=== PATIENT | female | born 1995 | race Two or more races ===

== ENCOUNTER 2017-01-04 18:45 | Emergency (ER) | payer BC ==
[2017-01-04 19:05] VITALS: BP 134/73; PULSE 100; TEMP 98.5; BMI 25.8
--- NOTE | 2017-01-04 19:31 | DIRPT ---
CLINICAL DATA: Right wrist pain after workout earlier today. Limited range of motion. EXAM: RIGHT WRIST - COMPLETE 3+ VIEW COMPARISON: None. FINDINGS: There is no evidence of fracture or dislocation. There is no evidence of arthropathy or other focal bone abnormality. Soft tissues are unremarkable. IMPRESSION: Negative. Electronically Signed By: Conner Ramirez M.D. On: 01/04/2017 19:28
--- NOTE | 2017-01-04 19:54 | EDPRACDOC ---
- General Information Chief Complaint: Wrist Pain Stated Complaint: WRIST PAIN Time Seen by Provider: 01/04/17 19:49 Information Source: Patient Mode of Arrival: Car Home Medications: Home Medications Meloxicam [Mobic] 7.5 mg PO BID #20 tab 01/04/17 Allergies/Adverse Reactions: Allergies Allergy/AdvReac Type Severity Reaction Status Date / Time Sulfa (Sulfonamide Allergy Rash-Genera Verified 01/04/17 19:07 Antibiotics) lized sulfamethoxazole Allergy Rash-Genera Verified 01/04/17 19:07 [From Bactrim] lized trimethoprim [From Bactrim] Allergy Rash-Genera Verified 01/04/17 19:07 lized - History of Present Illness Onset: today HPI: PT PRESENTS TODAY WITH RIGHT WRIST PAIN AFTER LIFTING TIRES A FORM OF EXERCISE EARLIER TODAY. STATES PAIN WORSE WITH FLEXION AND RADIATES UP FOREARM. NO OTHER INJURY REPORTED. Location: Reports: Dorsal Dominant Side: Reports: Right Mechanism: Reports: Hyperflexion Circumstances: Reports: Sporting Pain Severity: Reports: Moderate Associated Signs and Symptoms: Reports: None ED Past Medical History - History Reviewed Yes Nurses notes reviewed and agree except as marked - Patient Medical History Psychological History: Denies: Depression Surgical History: Reports: Tonsillectomy/Adnoidectomy (age 5). Denies: Hysterectomy - Family Medical History Reports: Hypertension - Social Medical History Smoking Status: Never smoker EDM Review of Systems - Review of Systems ROS Negative Except as Marked: Yes All systems reviewed and were negative except as marked Constitutional: No Symptoms Reported Respiratory: No Symptoms Reported Cardiovascular: No Symptoms Reported Gastrointestinal: No Symptoms Reported Neurological: No Symptoms Reported Musculoskeletal: Forearm, Wrist Integumentary: No Symptoms Reported - Physical Exam Constitutional: Alert (Awake), No apparent distress Oriented to: Time, Person, Place Last recorded Vital Signs: Last Vital Signs Temp 98.5 F 01/04/17 19:03 Pulse 100 01/04/17 19:03 Resp 18 01/04/17 19:03 BP 134/73 01/04/17 19:03 Pulse Ox 99 01/04/17 19:03 Oxygen Pulse Oxygen Saturation 99 O2 Device Room Air Oxygen Flow Rate Fraction of Inspired Oxygen ( FIO2) - HEENT Head: Normal Eye Exam: Normal Neck: Normal, Denies Pain, Midline - Respiratory/Cardiovascular Respiratory: Normal - CTA Cardiovascular: Normal - GI Palpation: Normal Tenderness: Non tender - Musculoskeletal Back: Normal Extremities: Other (MILD TENDERNESS WITH FLEXION OF WRIST; NO SNUFFBOX TENDERNESS; NO SWELLING/BRUISING/DEFORMITY NOTED;) - Integumentary Skin: Normal Lymphatics: Normal - Neurologic Cerebellar: Normal Mood Description: Normal Thought: Coherent Perception: Normal ED Wrist Problem Exam Wrist Symptoms: Limited ROM, Moderate Tenderness Hand Symptoms: Normal Forearm Symptoms: Normal Distal Function/Circulation: Normal - Integumentary Skin: Normal Lymphatics: Normal Decision Time to Discharge: 19:54 - Departure Disposition: Home Condition: Good Final Diagnosis: Sprain of wrist Instructions: Wrist Injury (ED) Education/Counseling Given To: Patient Education/Counseling Given Regarding: Diagnosis, Treatment, Follow Up Referrals: Jessica Mills PA [Primary Care Provider] - One Week Richmond Bartlett MD [Staff Physician] - One Week Prescriptions: New Meloxicam [Mobic] 7.5 mg PO BID #20 tab Additional Instructions: WEAR SPLINT MUCH POSSIBLE AND IF SYMPTOMS PERSIST PAST 10 DAYS, FOLLOW UP WITH ORTHO.
== END 2017-01-04 20:01 | disposition home or self-care (01) ==
LOC: ED 18:45 → EDMC 20:01
DX: S63.501A Unspecified sprain of right wrist, initial encounter (principal); X58.XXXA Exposure to other specified factors, initial encounter; Y93.89 Activity, other specified
CPT/HCPCS: 99282